=== PATIENT | female | born 1970 | race Caucasian/White ===

== ENCOUNTER 2018-09-09 07:14 | Day surgery (SDC) | payer OTHER ==
[~2018-09-09 07:14] MED LIST: ATORVASTATIN CA40 MG PO; DEPAKOTE ER500 MG PO; JANUMET XR 50-1 EAC1 PO; LATUDA20 MG PO; PROSAC PO
== END 2018-09-09 18:10 | disposition home or self-care (01) ==
LOC: CIR.AMB 07:14
DX: N84.0 Polyp of corpus uteri (principal)